=== PATIENT | male | born 1965 | race Caucasian/White ===

== ENCOUNTER 2018-03-23 20:38 | Emergency (ER) | payer MEDICAID ==
[~2018-03-23] VITALS: Ht 182.9 cm; Wt 155.1 kg
[2018-03-23] MEDS ORDERED: LISINOPRIL20 MG (20:48)
[2018-03-23] MEDS ORDERED: VALIUM5 MG (20:48)
[2018-03-23] MEDS ORDERED: OMEPRAZOLE40 MG (20:49)
[2018-03-23] MEDS ORDERED: HYDROCHLOROTHIA25 M2 (20:49)
[2018-03-23 21:32] LABS: ABSOLUTE EOSINOPHILS 0.1 thou/uL (0.0-0.7); ABSOLUTE LYMPHOCYTES 2.2 thou/uL (0.8-5.3); ABSOLUTE MONOCYTES 0.7 thou/uL (0.0-1.2); ABSOLUTE NEUTROPHILS 3.8 thou/uL (1.6-8.1); BASOPHILS 0.7 %; EOSINOPHILS 1.4 %; HEMATOCRIT 43.1 % (42.0-52.0); HEMOGLOBIN 14.6 gm/dL (14.0-18.0); MCH 32.2 pg (26.0-34.0); MCHC 33.9 g/dL (28.0-37.0); MCV 95.1 fL (80.0-100.0); MONOCYTES 9.8 %; MPV 8.1 fl. (7.2-11.1); NUCLEATED RBCS 0 /100WBC; PLATELET COUNT* 231 thou/uL (150-400); POLYS 55.1 %; RBC 4.53 mil/uL (4.50-6.00); RDW-CV 13.5 % (10.5-14.5); WBC 6.8 thou/uL (4.0-11.0)
[2018-03-23 21:40] LABS: ANION GAP 2 mmol/L (7-16); BUN 12 mg/dL (7-18); CALCIUM 9.1 mg/dL (8.5-10.1); CHLORIDE 101 mmol/L (98-107); CO2 32 mmol/L (21-32); CREATININE 0.9 mg/dL (0.6-1.3); GLUCOSE 132 mg/dL (70-99); POTASSIUM 4.5 mmol/L (3.5-5.1); SODIUM 135 mmol/L (136-145)
[2018-03-23 21:51] LABS: ALBUMIN 3.4 g/dL (3.4-5.0); ALKALINE PHOSPHATASE 63 U/L (46-116); NT-PRO BRAIN NAT PEPTIDE 18 pg/mL (<300); SGOT 29 U/L (15-37); SGPT 34 U/L (30-65); TOTAL BILIRUBIN 0.6 mg/dL (<0.1-1.0); TOTAL PROTEIN 7.2 g/dL (6.4-8.2); TROPONIN-I LEVEL <0.06 ng/mL (<0.06)
[2018-03-23] MEDS ORDERED: NORCO 5-325 TA1 EACH PO (22:08)
[2018-03-23 22:32] VITALS: BP 112/69
--- NOTE | 2018-03-24 11:14 | EKG ---
[place] [address] ELECTROCARDIOGRAM REPORT Name: RUDOLPH SHETTY Room: [facility]#: [id number] Admission: 03/23/18 Attend Phys: Discharge: 03/23/18 Date of : 65 Report #: [id number] THIS REPORT FOR: //name// [facility] ED Test Date: 2018-03-23 Test Time: 21:41:21 Pat Name: RUDOLPH SHETTY Department: Room: Gender: M Intervention Analyst: Tyler WU : 1965 Requested By: Jennifer Burns Order Number: [id number] MD: Leoncio Dhillon Measurements Intervals [place] Rate: 106 P: 48 [place]: 147 QRS: 68 QRSD: 100 T: 11 QT: 362 QTc: 481 Interpretive Statements Sinus tachycardia Probable left atrial enlargement Low voltage, precordial leads Borderline prolonged QT interval No previous ECG available for comparison Electronically Signed On 03-24-2018 11:14:27 CDT by Leoncio Dhillon [email or web address] <ELECTRONICALLY SIGNED> By: Leoncio Dhillon MD, FACC 03/24/18 [id number] Leoncio Dhillon MD, [facility] /EPI
== END 2018-03-23 22:33 | disposition home or self-care (01) ==
LOC: M.ERS 20:38
PROVIDERS: Physician Assistant
DX: M79.605 Pain in left leg (principal); M54.5 Low back pain; I10 Essential (primary) hypertension; F41.9 Anxiety disorder, unspecified; F17.210 Nicotine dependence, cigarettes, uncomplicated; Z88.8 Allergy status to other drugs, medicaments and biological substances